=== PATIENT | male | born 1935 | race Asian ===

== ENCOUNTER 2021-04-07 12:53 | Emergency (ER) | payer MEDICARE, OTHER ==
[~2021-04-07] VITALS: Ht 180.3 cm; Wt 72.2 kg
[2021-04-07] MEDS ORDERED: SODIUM CHLORIDE 0.9% 1000ML 1,000 ML IV STA (12:59)
[2021-04-07] MEDS ORDERED: KETOROLAC TROMETHAMINE 30 MG/ML VIAL IV ONE (13:00)
[2021-04-07] MEDS ORDERED: ACETAMINOPHEN 325 MG TAB PO ONE (13:00)
[2021-04-07] MEDS ORDERED: KETOROLAC TROMETHAMINE 30 MG/ML VIAL ONE (13:38)
[2021-04-07] MEDS ORDERED: ACETAMINOPHEN 325 MG TAB ONE (13:38)
[2021-04-07] MEDS ORDERED: SODIUM CHLORIDE 0.9% 1000ML 1,000 ML ONE (13:38)
[2021-04-07] MEDS ORDERED: BENZONATATE200 MG PO (13:47)
[2021-04-07] MEDS ORDERED: THERAFLU FLU &1 EAC1 PO (13:47)
[2021-04-07] MEDS ORDERED: IBUPROFEN100 MG/5 M PO (13:47)
[2021-04-07] MEDS ORDERED: AZITHROMYCIN250 MG PO (13:47)
[2021-04-07] MEDS ORDERED: ONDANSETRON ODT4 MG PO (13:47)
[2021-04-07] MEDS ORDERED: PROVENTIL HFA6.7 GM INH (13:47)
[2021-04-07] MEDS ORDERED: LINZESS145 MCG (13:52)
[2021-04-07] MEDS ORDERED: GLIPIZIDE ER5 MG PO (13:52)
[2021-04-07] MEDS ORDERED: LOVAZA1 GM PO (13:52)
[2021-04-07] MEDS ORDERED: AMLODIPINE BESYL5 MG PO (13:52)
[2021-04-07] MEDS ORDERED: TIZANIDINE HCL4 MG PO (13:52)
[2021-04-07] MEDS ORDERED: DOCUSATE SODIU100 MG PO (13:52)
[2021-04-07] MEDS ORDERED: VITAMIN D250 MCG (13:52)
[2021-04-07] MEDS ORDERED: TRADJENTA5 MG (13:52)
[2021-04-07] MEDS ORDERED: FLOMAX0.4 MG PO (13:52)
[2021-04-07] MEDS ORDERED: LOSARTAN POTASS25 MG PO (13:52)
[2021-04-07] MEDS ORDERED: CLOPIDOGREL75 MG PO (13:52)
[2021-04-07] MEDS ORDERED: ATORVASTATIN CA20 MG PO (13:52)
[2021-04-07] MEDS ORDERED: ACETAMINOPHEN/CODEINE ELIX 120-12 MG/5 ML UDC PO ONE (14:00)
[2021-04-07] MEDS ORDERED: ONDANSETRON HCL INJ 2MG/ML 2ML 2 MG/ML VIAL IV ONE (14:00)
== END 2021-04-07 14:21 | disposition home or self-care (01) ==
LOC: FSED 13:00
DX: U07.1 COVID-19 (principal); J02.9 Acute pharyngitis, unspecified; R53.81 Other malaise; R53.83 Other fatigue; E11.65 Type 2 diabetes mellitus with hyperglycemia; I10 Essential (primary) hypertension
CPT/HCPCS: 71046; 80053; 82553; 84484; 85025; 96374; 96375; 99284; J1885; J2405; J7030